=== PATIENT | male | born 1955 | race Caucasian/White ===

== ENCOUNTER → 2023-07-21 09:49 | Outpatient (BNVA) | payer MEDICARE, MEDICAID, SELFPAY | PROVIDERS: Family Provider Family Medicine; PCP Nurse Practitioner Family; Visit Provider Nurse Practitioner Family | DX: E78.5 Hyperlipidemia, unspecified (principal); R53.83 Other fatigue; I10 Essential (primary) hypertension; M51.34 Other intervertebral disc degeneration, thoracic region; R53.82 Chronic fatigue, unspecified | CPT/HCPCS: 80053; 80061; 84403 ==